=== PATIENT | female | born 1955 | race Caucasian/White ===

== ENCOUNTER → 2017-04-16 | Outpatient (CLI) | payer OTHER ==
[~2017-04-16] VITALS: Ht 152.4 cm; Wt 58.5 kg
[~2017-04-16] MED LIST: ASPI81 PO; ATOR20TA86 PO; BACL10TA PO; CIPR-278 PO; HYDR-309 PO; NAPR-58 PO; OMEG-11 PO
[2017-04-16 10:00] VITALS: BP 135/63
== END | disposition home or self-care (01) ==
LOC: HBOWC 09:37
PROVIDERS: ATTEND Emergency Medicine
DX: L98.491 Non-pressure chronic ulcer of skin of other sites limited to breakdown of skin (principal)
CPT/HCPCS: 97597; G0463

== ENCOUNTER → 2017-04-19 | Outpatient (CLI) | payer OTHER ==
[2017-04-19 15:04] VITALS: BP 138/76
== END | disposition home or self-care (01) ==
LOC: HBOWC 14:28
PROVIDERS: ATTEND Emergency Medicine
DX: L98.411 Non-pressure chronic ulcer of buttock limited to breakdown of skin (principal); B96.5 Pseudomonas (aeruginosa) (mallei) (pseudomallei) as the cause of diseases classified elsewhere

== ENCOUNTER → 2017-04-24 | Outpatient (CLI) | payer OTHER ==
[2017-04-24 09:00] VITALS: BP 124/67
== END | disposition home or self-care (01) ==
LOC: HBOWC 08:49
PROVIDERS: ATTEND Emergency Medicine
DX: L98.411 Non-pressure chronic ulcer of buttock limited to breakdown of skin (principal)
CPT/HCPCS: 97597

== ENCOUNTER → 2017-04-26 | Outpatient (CLI) | payer OTHER ==
[2017-04-26 11:51] VITALS: BP 141/73
== END | disposition home or self-care (01) ==
LOC: HBOWC 11:45
PROVIDERS: ATTEND Emergency Medicine
DX: S31.819D Unspecified open wound of right buttock, subsequent encounter (principal); X58.XXXD Exposure to other specified factors, subsequent encounter

== ENCOUNTER → 2017-04-29 | Outpatient (CLI) | payer OTHER ==
[2017-04-29 16:05] VITALS: BP 136/70
== END | disposition home or self-care (01) ==
LOC: HBOWC 14:39
PROVIDERS: ATTEND Emergency Medicine
DX: L98.412 Non-pressure chronic ulcer of buttock with fat layer exposed (principal)

== ENCOUNTER → 2017-05-13 | Outpatient (CLI) | payer OTHER ==
[2017-05-13 15:23] VITALS: BP 121/70
== END | disposition home or self-care (01) ==
LOC: HBOWC 14:33
PROVIDERS: ATTEND Emergency Medicine Undersea and Hyperbaric Medicine
DX: L98.412 Non-pressure chronic ulcer of buttock with fat layer exposed (principal)

== ENCOUNTER → 2017-05-21 | Outpatient (CLI) | payer OTHER ==
[2017-05-21 14:54] VITALS: BP 108/53
== END | disposition home or self-care (01) ==
LOC: HBOWC 14:38
PROVIDERS: ATTEND Emergency Medicine
DX: L98.412 Non-pressure chronic ulcer of buttock with fat layer exposed (principal)
CPT/HCPCS: 97597

== ENCOUNTER → 2017-06-04 | Outpatient (CLI) | payer OTHER ==
[~2017-06-04] MED LIST changes: +LIDOCAINE HCL 2%/EPI 1:200,000/PF 10 ML VIAL IM ONE
[2017-06-04 11:39] VITALS: BP 131/74
== END | disposition home or self-care (01) ==
LOC: HBOWC 11:25
PROVIDERS: ATTEND Emergency Medicine
DX: L98.412 Non-pressure chronic ulcer of buttock with fat layer exposed (principal); B96.5 Pseudomonas (aeruginosa) (mallei) (pseudomallei) as the cause of diseases classified elsewhere
CPT/HCPCS: 11042; J3490

== ENCOUNTER → 2017-06-11 | Outpatient (CLI) | payer OTHER ==
[~2017-06-11] MED LIST changes: -LIDOCAINE HCL 2%/EPI 1:200,000/PF 10 ML VIAL IM ONE
[2017-06-11 10:57] VITALS: BP 117/57
== END | disposition home or self-care (01) ==
LOC: HBOWC 09:53
PROVIDERS: ATTEND Emergency Medicine
DX: L98.412 Non-pressure chronic ulcer of buttock with fat layer exposed (principal); B96.5 Pseudomonas (aeruginosa) (mallei) (pseudomallei) as the cause of diseases classified elsewhere
CPT/HCPCS: 97597

== ENCOUNTER → 2017-06-19 | Outpatient (CLI) | payer OTHER ==
[~2017-06-19] MED LIST changes: +LIDOCAINE HCL 2% 5 ML JELLY ONE
[2017-06-19 11:25] VITALS: BP 107/56
== END | disposition home or self-care (01) ==
LOC: HBOWC 10:09
PROVIDERS: ATTEND Emergency Medicine
DX: L98.411 Non-pressure chronic ulcer of buttock limited to breakdown of skin (principal)
CPT/HCPCS: 97597

== ENCOUNTER → 2017-07-03 | Outpatient (CLI) | payer OTHER ==
[~2017-07-03] MED LIST changes: -LIDOCAINE HCL 2% 5 ML JELLY ONE
[2017-07-03 10:34] VITALS: BP 116/57
== END | disposition home or self-care (01) ==
LOC: HBOWC 10:00
PROVIDERS: ATTEND Emergency Medicine
DX: L98.411 Non-pressure chronic ulcer of buttock limited to breakdown of skin (principal)